=== PATIENT | male | born 1975 | race Caucasian/White ===

== ENCOUNTER 2021-03-04 16:06 | Emergency (ER) | payer OTHER ==
[~2021-03-04] VITALS: Ht 172.7 cm; Wt 88.8 kg
--- NOTE | 2021-03-04 17:00 | REP ---
INDICATION: laceration. COMPARISON: None. TECHNIQUE: Four views of the 3rd digit of the left hand FINDINGS: No acute fracture or destructive osseous lesion. IMPRESSION: No acute osseous abnormality. <Electronically signed by Zak An > 03/04/21 0919
[2021-03-04] MEDS ORDERED: DERMABOND TOPICAL SKIN ADHESIVE TOP ONE (19:35)
[2021-03-04] MEDS ORDERED: CEPH500C PO (19:53)
[2021-03-04 20:30] VITALS: BP 137/83
== END 2021-03-04 20:31 | disposition home or self-care (01) ==
LOC: M ED 16:06
DX: S61.213A Laceration without foreign body of left middle finger without damage to nail, initial encounter (principal); W26.8XXA Contact with other sharp object(s), not elsewhere classified, initial encounter; Y92.018 Other place in single-family (private) house as the place of occurrence of the external cause